=== PATIENT | male | born 1980 | race Caucasian/White ===

== ENCOUNTER 2019-05-01 07:58 | Emergency (ER) | payer SELFPAY ==
[~2019-05-01] VITALS: Ht 162.6 cm; Wt 77.6 kg
[2019-05-01 08:02] VITALS: BP 145/72
--- NOTE | 2019-05-01 08:08 | NUR ---
PT AMBULATED TO BED 3.
--- NOTE | 2019-05-01 08:21 | NUR ---
PT PRESENTS TO ED WITH C/O SMALL RED BUMP ON TIP OF PENIS. PT DENIES PAIN AT THIS TIME. PT STATES THAT BUMP HAS BEEN ON THE TIP OF PENIS X 4 MONTHS. PT STATES THAT HE DOES NOT HAVE ANY DIFFICULTY URINATING BUT OCCASIONALY FEELS DISCOMFORT. PT IN GOWN AND POSITIONED FOR COMFORT. BED RAIL UP X 1. ER MD TO SEE PT. KEESHA HX: DENIES RX: DENIES
--- NOTE | 2019-05-01 08:21 | NUR ---
Patient being evaluated by DR. CRAWLEY at bedside.
--- NOTE | 2019-05-01 08:31 | NUR ---
Patient discharged with v/s stable. Written and verbal after care instructions given and explained. Patient alert, oriented and verbalized understanding of instructions. Ambulatory with steady gait. All questions addressed prior to discharge. ID band removed. Patient advised to follow up with PMD. Rx of BACTROBAN given. Patient educated on indication of medication including possible reaction and side effects. Opportunity to ask questions provided and answered.
[2019-05-01 08:32] VITALS: BP 145/72
== END 2019-05-01 08:31 | disposition home or self-care (01) ==
LOC: MED 07:58
DX: N48.1 Balanitis (principal)
CPT/HCPCS: 99283